=== PATIENT | female | born 1945 | race Caucasian/White ===

== ENCOUNTER 2017-11-26 11:36 | Inpatient (IN) | payer OTHER, BC ==
[~2017-11-26] VITALS: Ht 172.7 cm; Wt 76.3 kg
[2017-11-26 12:37] LABS: HEMATOCRIT 36.7 % (36.0-46.0); HEMOGLOBIN 12.3 G/DL (11.9-15.5); MCH 30.5 PG (29.0-34.0); MCHC 33.5 G/DL (30.0-36.0); MCV 91.1 FL (83-99); PLATELET COUNT 238 K/uL (156-360); RBC DIS.WIDTH-CV 12.8 % (11.8-14.6); RBC DIS.WIDTH-SD 42.7 % (39-53); RED BLOOD COUNT 4.03 M/uL (3.80-5.20)
[2017-11-26 12:51] LABS: CHLORIDE 102 mEq/L (99-109); POTASSIUM 3.9 mEq/L (3.7-5.4); SODIUM 140 mEq/L (136-147)
[2017-11-26 12:52] LABS: GLUCOSE 89 mg/dL (70-99)
[2017-11-26 12:56] LABS: CREATININE 1.1 mg/dL (0.6-1.3); GFR ESTIMATE (CALCULATED) 52 mL/min/
[2017-11-26 12:57] LABS: UREA NITROGEN (BUN) 22 mg/dL (9-23)
[2017-11-26 13:00] LABS: TROP-I INTERPRETATION NEGATIVE; TROPONIN-I < 0.01 ng/mL (0.0-0.30)
[2017-11-26 13:16] LABS: ALBUMIN 4.3 g/dL (3.2-4.8)
[2017-11-26 13:19] LABS: TOTAL PROTEIN 7.4 g/dL (6.4-8.3)
[2017-11-26 13:21] LABS: TOTAL BILIRUBIN 4.4 mg/dL (0.0-1.0)
[2017-11-26 13:22] LABS: ALKALINE PHOSPHATASE 140 IU/L (3-129)
[2017-11-26 13:24] LABS: AST (GOT) 261 IU/L (2-34); DIRECT BILIRUBIN 1.7 mg/dL (0.0-0.3)
[2017-11-26 13:25] LABS: ALT (GPT) 573 IU/L (3-49)
[2017-11-26 13:26] LABS: LIPASE 12 U/L (1.0-51.0)
[2017-11-26] MEDS ORDERED: HYDROCHLOROTHIA25 MG PO (18:25)
[2017-11-26] MEDS ORDERED: ONE DAILY1 EAC3 PO (18:25)
[2017-11-26 18:33] LABS: INTER. NORMALIZED RATIO 1.1
[2017-11-26 18:36] LABS: PTT 25.3 SEC (25-37)
[2017-11-26 21:13] VITALS: BP 143/68
[2017-11-26 23:41] LABS: TROP-I INTERPRETATION NEGATIVE; TROPONIN-I < 0.01 ng/mL (0.0-0.30)
[2017-11-27 06:32] LABS: HEMATOCRIT 30.1 % (36.0-46.0); MCH 30.1 PG (29.0-34.0); MCHC 32.9 G/DL (30.0-36.0); MCV 91.5 FL (83-99); PLATELET COUNT 188 K/uL (156-360); RBC DIS.WIDTH-SD 43.2 % (39-53); RED BLOOD COUNT 3.29 M/uL (3.80-5.20); WHITE BLOOD COUNT 4.5 K/uL (4.1-10.2)
[2017-11-27 06:33] LABS: HEMOGLOBIN 9.9 G/DL (11.9-15.5)
[2017-11-27 07:15] VITALS: BP 116/53
[2017-11-27 09:05] LABS: CHLORIDE 105 MEQ/L (99-109); SODIUM 139 MEQ/L (136-147)
[2017-11-27 09:10] LABS: CREATININE 0.8 MG/DL (0.6-1.3); GFR ESTIMATE (CALCULATED) > 59 mL/min/; GLUCOSE 96 mg/dL (70-99); UREA NITROGEN (BUN) 16 mg/dL (9-23)
[2017-11-27 09:41] LABS: ALBUMIN 3.7 G/DL (3.2-4.8); ALKALINE PHOSPHATASE 112 IU/L (3-129); ALT (GPT) 287 IU/L (3-49); AST (GOT) 85 IU/L (2-34); DIRECT BILIRUBIN 0.6 mg/dL (0.0-0.3); TOTAL PROTEIN 6.2 G/DL (6.4-8.3)
[2017-11-27 10:58] LABS: HEPATITIS B SURFACE ANTIGEN Nonreactive
[2017-11-27 10:59] LABS: HEPATITIS B SURFACE ANTIBODY Nonreactive; HEPATITIS C ANTIBODY Nonreactive
[2017-11-27 15:25] VITALS: BP 138/64
[2017-11-27 23:38] VITALS: BP 125/56
[2017-11-28 05:54] LABS: HEMATOCRIT 29.9 % (36.0-46.0); HEMOGLOBIN 9.7 G/DL (11.9-15.5); MCH 29.8 PG (29.0-34.0); MCHC 32.4 G/DL (30.0-36.0); MCV 91.7 FL (83-99); PLATELET COUNT 183 K/uL (156-360); RBC DIS.WIDTH-CV 12.8 % (11.8-14.6); RBC DIS.WIDTH-SD 42.7 % (39-53); RED BLOOD COUNT 3.26 M/uL (3.80-5.20); WHITE BLOOD COUNT 3.6 K/uL (4.1-10.2)
[2017-11-28 06:18] LABS: IRON 46 MCG/DL (35-150); TRANSFERRIN (TIBC) 184.9 mg/dL (215-380); TRANSFERRIN SATUR. 25 % (20-55)
[2017-11-28 07:31] VITALS: BP 149/67
[2017-11-28 07:50] LABS: ALBUMIN 3.2 G/DL (3.2-4.8); ALKALINE PHOSPHATASE 87 IU/L (3-129); ALT (GPT) 168 IU/L (3-49); CHLORIDE 110 MEQ/L (99-109); CREATININE 0.8 MG/DL (0.6-1.3); FERRITIN 204 NG/ML (10-291); GFR ESTIMATE (CALCULATED) > 59 mL/min/; GLUCOSE 88 mg/dL (70-99); SODIUM 143 MEQ/L (136-147); TOTAL PROTEIN 5.5 G/DL (6.4-8.3); UREA NITROGEN (BUN) 12 mg/dL (9-23)
[2017-11-28 07:51] LABS: AST (GOT) 36 IU/L (2-34)
[2017-11-28 07:56] LABS: FOLIC ACID (FOLATE) > 22.0 NG/ML (5.0-22.0)
[2017-11-28] MEDS ORDERED: ZOFRAN ODT8 MG PO (15:49)
[2017-11-28 21:01] LABS: HEMATOCRIT 31.7 % (36.0-46.0); HEMOGLOBIN 10.8 G/DL (11.9-15.5); MCH 30.8 PG (29.0-34.0); MCHC 34.1 G/DL (30.0-36.0); MCV 90.3 FL (83-99); PLATELET COUNT 184 K/uL (156-360); RBC DIS.WIDTH-CV 12.6 % (11.8-14.6); RED BLOOD COUNT 3.51 M/uL (3.80-5.20); WHITE BLOOD COUNT 7.7 K/uL (4.1-10.2)
[2017-11-28 21:19] LABS: ALBUMIN 3.7 g/dL (3.2-4.8); CHLORIDE 108 mEq/L (99-109); POTASSIUM 3.8 mEq/L (3.7-5.4); SODIUM 140 mEq/L (136-147)
[2017-11-28 21:22] LABS: GLUCOSE 122 mg/dL (70-99)
[2017-11-28 21:25] LABS: CREATININE 0.8 mg/dL (0.6-1.3); GFR ESTIMATE (CALCULATED) > 59 mL/min/; PHOSPHORUS 3.5 mg/dL (2.5-4.9)
[2017-11-28 21:26] LABS: UREA NITROGEN (BUN) 12 mg/dL (9-23)
[2017-11-28 21:27] LABS: TROP-I INTERPRETATION NEGATIVE; TROPONIN-I < 0.01 ng/mL (0.0-0.30)
[2017-11-28 21:28] LABS: ALT (GPT) 201 IU/L (3-49)
[2017-11-28 21:30] VITALS: BP 180/80
[2017-11-28 21:31] LABS: ALKALINE PHOSPHATASE 104 IU/L (3-129); AST (GOT) 42 IU/L (2-34); TOTAL BILIRUBIN 1.3 mg/dL (0.0-1.0); TOTAL PROTEIN 5.9 g/dL (6.4-8.3)
[2017-11-28 22:20] LABS: THYROTROPIN (TSH) 2.9 MIU/L (0.4-5.5)
[2017-11-28 22:30] VITALS: BP 160/82
[2017-11-28 22:41] LABS: APPEARANCE SL.HAZY ((CLEAR)); BILIRUBIN NEGATIVE; BLOOD NEGATIVE; COLOR YELLOW ((YELLOW)); GLUCOSE (STRIP) NEGATIVE; KETONES 20; LEUKOCYTES NEGATIVE; NITRITE NEGATIVE; PROTEIN (STRIP) NEGATIVE; SPECIFIC GRAVITY 1.013 (1.000-1.030); UROBILINOGEN 0.2 MG/DL (0.2-1.0)
[2017-11-28 22:50] LABS: BACTERIA RARE /HPF; EPITHELIAL CELLS 2+ /HPF; MUCUS 2+ /LPF; RED BLOOD CELLS 0-5 /HPF (0-5); UCUL ADDED? NO; WHITE BLOOD CELLS 0-5 /HPF (0-5)
[2017-11-28 23:52] VITALS: BP 160/74
[2017-11-29 04:20] VITALS: BP 132/67
[2017-11-29 05:31] LABS: BASOPHIL (%) 0.1 % (0-1); EOSINOPHIL (%) 0 % (0-5); HEMATOCRIT 29.9 % (36.0-46.0); IMMATURE GRANULOCYTE (%) 0.5 % (0.0-0.7); LYMPHOCYTE (%) 6.2 % (15-42); LYMPHOCYTE COUNT 0.6 K/uL (1.0-2.8); MCH 30.2 PG (29.0-34.0); MCHC 33.4 G/DL (30.0-36.0); MCV 90.3 FL (83-99); MONOCYTE (%) 6.6 % (3-12); MONOCYTE COUNT 0.6 K/uL (0-0.8); NEUTROPHIL (%) 86.6 % (45-76); NEUTROPHIL COUNT 8.3 K/uL (1.8-6.4); PLATELET COUNT 205 K/uL (156-360); RBC DIS.WIDTH-CV 12.4 % (11.8-14.6); RBC DIS.WIDTH-SD 40.9 % (39-53); RED BLOOD COUNT 3.31 M/uL (3.80-5.20); WHITE BLOOD COUNT 9.6 K/uL (4.1-10.2)
[2017-11-29 06:48] LABS: ALBUMIN 3.4 G/DL (3.2-4.8); ALKALINE PHOSPHATASE 88 IU/L (3-129); ALT (GPT) 132 IU/L (3-49); AST (GOT) 30 IU/L (2-34); CHLORIDE 106 MEQ/L (99-109); CREATININE 0.8 MG/DL (0.6-1.3); GFR ESTIMATE (CALCULATED) > 59 mL/min/; GLUCOSE 135 mg/dL (70-99); POTASSIUM 3.8 MEQ/L (3.7-5.4); SODIUM 140 MEQ/L (136-147); TOTAL BILIRUBIN 1.2 MG/DL (0.0-1.0); TOTAL PROTEIN 5.7 G/DL (6.4-8.3); UREA NITROGEN (BUN) 13 mg/dL (9-23)
[2017-11-29 07:28] VITALS: BP 112/56
[2017-11-29 08:23] LABS: LIPASE 1134 U/L (1.0-51.0)
[2017-11-29 11:17] VITALS: BP 139/64
== END 2017-11-29 17:10 | disposition home or self-care (01) | DRG 446 ==
LOC: EME 11:36 → EDOF 19:47 → 4EAST 19:47 → 5EAST 19:47 → ENRESERV 19:57 → 5EAST 20:46 → ENRESERV 11-28 19:46 → 4EAST 11-28 20:41
PROVIDERS: Hospitalist; Internal Medicine Gastroenterology; Nurse Practitioner Family; Physician Assistant
DX: K80.51 Calculus of bile duct without cholangitis or cholecystitis with obstruction (principal); R79.89 Other specified abnormal findings of blood chemistry; T50.8X5A Adverse effect of diagnostic agents, initial encounter; D64.9 Anemia, unspecified; I10 Essential (primary) hypertension; Z66 Do not resuscitate
CPT/HCPCS: 71046; 74177; 74183; 74328; 76705; 80048; 80053; 80076; 81003; 82105 90; 82378; 82607; 82728; 82746; 83540; 83605; 83690; 83735; 84100; 84439; 84443; 84466; 84484; 85025; 85027; 85610; 85730; 86301 90; 86706; 86803; 87081; 87340; 93005; 93306; 99281; 99285; C1757; C1769; C2625; J1644; J1956; J2405; J2550; J2765; J3010; J7030; J7120